=== PATIENT | male | born 1950 | race Caucasian/White ===

== ENCOUNTER 2020-06-23 07:29 | Emergency (ER) | payer OTHER ==
[~2020-06-23 07:29] MED LIST: Magnesium 2 GM/50 ML BAG (IN WATER) ONE; Ondansetron PF 4 MG/2 ML Vial ONE
[2020-06-23 07:44] LABS: #Eosinphils 0.1 10x3/uL (0.0-0.5); #Monocytes 1.1 10x3/uL (0.0-1.1); %Basophils 0.1 % (0.0-2.0); %Eosinophils 0.5 % (0.0-6.0); %Lymphocytes 1.7 % (18.0-47.0); %Monocytes 8.3 % (0.0-10.0); %Neutrophils 88.8 % (40.0-75.0); ALT (SGPT) 12 U/L (8-55); AST (SGOT) 21 U/L (5-34); Albumin 4.7 g/dL (3.4-4.8); Alkaline Phosphatase 180 U/L (40-110); Anion Gap 21 mmol/L (10-20); BUN (Urea Nitrogen) 26 mg/dL (8.4-25.7); Bilirubin, Total 1.6 mg/dL (0.2-1.2); Calc. Creatinine Clearance 0 mL/min (70-130); Calcium 10.3 mg/dL (7.8-10.44); Carbon Dioxide 19 mmol/L (23-31); Chloride 106 mmol/L (98-107); Globulin 4.2 g/dL (2.4-3.5); Glucose 124 mg/dL (83-110); Hemoglobin 15.6 g/dL (13.5-17.5); Mean Corpuscular HGB CONC 31.8 g/dL (32.0-36.0); Mean Corpuscular Hemoglobin 27.7 pg (27.0-33.0); Mean Corpuscular Volume 87.1 fl (81.2-95.1); Mean Platelet Volume 10.6 fl (7.4-10.4); Platelet Count 199 10x3/uL (150-450); Potassium 4.4 mmol/L (3.5-5.1); Protein, Total 8.9 g/dL (5.8-8.1); Red Blood Cell (RBC) Count 5.64 10x6/uL (4.32-5.72); SARS-CoV-2 NAA Rapid Test Not Detected (NotDetected); Sodium 142 mmol/L (136-145); White Blood Cell (WBC) Count 13.5 10x3/uL (3.5-10.5)
[2020-06-23 07:45] LABS: INR-International Normal Ratio 1.1; Prothrombin Time 11.7 sec (9.5-12.1)
[2020-06-23 07:46] LABS: Lactic Acid 3.4 mmol/L (0.5-2.2)
[2020-06-23] MEDS ORDERED: Piperacillin/Tazobactam 4.5 GM VIAL ONE (08:07)
[2020-06-23 09:27] LABS: Bilirubin Neg (Negative); Blood, Urine 150 (Negative); Clarity Cloudy (Clear); Glucose, Urine (Dipstick) Normal (Negative); Ketone, Urine Negative (Negative); Leukocyte 500 (Negative); Nitrite Negative (Negative); Protein, Urine (Dipstick) 30 mg/dl (Neg-Trace)
[2020-06-23 09:52] LABS: Bacteria/HPF 4+ HPF (None Seen); RBC/HPF 0-3 HPF (0-3); Squamous Epithelial 0-3 HPF (0-3); WBC/HPF 21-50 HPF (0-3)
== END 2020-06-23 13:52 ==
LOC: CSHERS 07:29
DX: I95.9 Hypotension, unspecified (principal); R19.7 Diarrhea, unspecified; R74.01 Elevation of levels of liver transaminase levels; I13.0 Hypertensive heart and chronic kidney disease with heart failure and stage 1 through stage 4 chronic kidney disease, or unspecified chronic kidney disease; I50.9 Heart failure, unspecified; N18.9 Chronic kidney disease, unspecified; E78.5 Hyperlipidemia, unspecified; K21.9 Gastro-esophageal reflux disease without esophagitis; I48.91 Unspecified atrial fibrillation; M19.90 Unspecified osteoarthritis, unspecified site; G47.30 Sleep apnea, unspecified; Z79.82 Long term (current) use of aspirin; Z79.899 Other long term (current) drug therapy; Z79.01 Long term (current) use of anticoagulants; Z20.822 Contact with and (suspected) exposure to COVID-19
CPT/HCPCS: 74177; 80053; 81003; 81015; 83605; 85025; 85610; 87040; 93005; 96365; 96367; 96375; J2405; J2543; J3475; U0002

== ENCOUNTER 2021-03-15 20:39 | Inpatient (IN) | payer OTHER ==
[2021-03-15 21:08] LABS: #Eosinphils 0.1 10x3/uL (0.0-0.5); #Monocytes 0.8 10x3/uL (0.0-1.1); #Neutrophils 6.3 10x3/uL (1.5-8.4); %Basophils 0.5 % (0.0-2.0); %Lymphocytes 8.3 % (18.0-47.0); %Monocytes 10.4 % (0.0-10.0); %Neutrophils 78.9 % (40.0-75.0); Hemoglobin 11.7 g/dL (13.5-17.5); Mean Corpuscular HGB CONC 30.9 g/dL (32.0-36.0); Mean Corpuscular Hemoglobin 27.4 pg (27.0-33.0); Mean Corpuscular Volume 88.8 fl (81.2-95.1); Mean Platelet Volume 11.3 fl (7.4-10.4); Platelet Count 238 10x3/uL (150-450); RBC Distribution Width 18.8 % (11.5-14.5); Red Blood Cell (RBC) Count 4.27 10x6/uL (4.32-5.72); White Blood Cell (WBC) Count 7.9 10x3/uL (3.5-10.5)
[2021-03-15 21:16] LABS: ALT (SGPT) 11 U/L (8-55); AST (SGOT) 18 U/L (5-34); Alkaline Phosphatase 171 U/L (40-110); Anion Gap 15 mmol/L (10-20); BUN (Urea Nitrogen) 15 mg/dL (8.4-25.7); Bilirubin, Total 1.3 mg/dL (0.2-1.2); Calc. Creatinine Clearance 0 mL/min (70-130); Calcium 8.9 mg/dL (7.8-10.44); Carbon Dioxide 21 mmol/L (23-31); Chloride 110 mmol/L (98-107); Globulin 2.9 g/dL (2.4-3.5); Glucose 100 mg/dL (83-110); Lipase 27 U/L (8-78); Potassium 4.6 mmol/L (3.5-5.1); Protein, Total 6.9 g/dL (5.8-8.1); Sodium 141 mmol/L (136-145)
[2021-03-15 21:35] LABS: CKMB 2.2 ng/mL (0-6.6)
[2021-03-16 00:18] LABS: SARS-CoV-2 NAA Rapid Test DETECTED (NotDetected)
[2021-03-16] MEDS ORDERED: Acetaminophen 325 MG TAB PO PRN (02:04)
[2021-03-16] MEDS ORDERED: HYDROcodone/Acetaminophen 5/325 mg Tablet PO PRN ×2 (02:04)
[2021-03-16] MEDS ORDERED: Nitroglycerin 0.4 MG TAB (25 Tab Bottle) SL PRN (02:04)
[2021-03-16] MEDS ORDERED: Senokot S 8.6-50 MG TAB PO PRN (02:04)
[2021-03-16] MEDS ORDERED: Guaifenesin DM 100-10/5 ML UDCUP PO PRN (02:04)
[2021-03-16] MEDS ORDERED: Calcium Carbonate 500 MG ChewTAB PO PRN (02:04)
[2021-03-16] MEDS ORDERED: Ondansetron PF 4 MG/2 ML Vial IVP PRN (02:04)
[2021-03-16] MEDS ORDERED: Enoxaparin Sodium 80 MG/0.8 ML SYRINGE SC SCH (02:15)
[2021-03-16] MEDS ORDERED: hydrALAZINE 20 MG/ML VIAL SLOW IVP PRN (02:34)
[2021-03-16 03:01] LABS: CKMB 2.6 ng/mL (0-6.6)
[2021-03-16 04:37] VITALS: BMI 39.4
[2021-03-16] MEDS ORDERED: Enoxaparin Sodium 100 MG/ML SYRINGE SC SCH (04:45)
[2021-03-16] MEDS ORDERED: Enoxaparin Sodium 30 MG/0.3 ML SYRINGE SC SCH (04:45)
[2021-03-16 07:12] LABS: #Basophils 0.1 10x3/uL (0.0-0.2); #Eosinphils 0.1 10x3/uL (0.0-0.5); #Monocytes 1.1 10x3/uL (0.0-1.1); #Neutrophils 5.6 10x3/uL (1.5-8.4); %Basophils 0.7 % (0.0-2.0); %Eosinophils 1.3 % (0.0-6.0); %Lymphocytes 7.4 % (18.0-47.0); %Monocytes 14.7 % (0.0-10.0); %Neutrophils 75.4 % (40.0-75.0); Hemoglobin 11.5 g/dL (13.5-17.5); Mean Corpuscular HGB CONC 30.6 g/dL (32.0-36.0); Mean Corpuscular Hemoglobin 27.2 pg (27.0-33.0); Mean Corpuscular Volume 88.9 fl (81.2-95.1); Mean Platelet Volume 11.3 fl (7.4-10.4); Platelet Count 244 10x3/uL (150-450); RBC Distribution Width 18.7 % (11.5-14.5); Red Blood Cell (RBC) Count 4.23 10x6/uL (4.32-5.72); White Blood Cell (WBC) Count 7.5 10x3/uL (3.5-10.5)
[2021-03-16 07:23] LABS: PTT 31.6 sec (22.0-33.0); Prothrombin Time 10.9 sec (9.5-12.1)
[2021-03-16 07:31] LABS: Anion Gap 15 mmol/L (10-20); BUN (Urea Nitrogen) 19 mg/dL (8.4-25.7); Calc. Creatinine Clearance 152 mL/min (70-130); Calcium 9.1 mg/dL (7.8-10.44); Carbon Dioxide 19 mmol/L (23-31); Cardiac Risk 3.6 (Less than 4.5); Chloride 113 mmol/L (98-107); Cholesterol 112 mg/dl (< 200 Desired); Glucose 110 mg/dL (83-110); HDL Cholesterol 31 mg/dL (>60 Neg Risk); LDL Cholesterol, Calculated 62 mg/dL; Potassium 3.8 mmol/L (3.5-5.1); Sodium 143 mmol/L (136-145); Triglycerides 97 mg/dL (Less than 150)
[2021-03-16] MEDS: Carvedilol 3.125 MG TAB PO SCH ×2 (08:09→17:57)
[2021-03-16] MEDS: Lisinopril 10 MG TAB PO SCH (08:09)
[2021-03-16] MEDS: Furosemide 20 MG TAB PO SCH (08:09)
[2021-03-16] MEDS: Aspirin 81 mg Enteric Coated Tablet PO SCH (08:09)
[2021-03-16 08:23] LABS: CKMB 3.8 ng/mL (0-6.6)
[2021-03-16] MEDS: Warfarin Sodium 5 MG TAB PO SCH (17:57)
[2021-03-16] MEDS: Enoxaparin Sodium 100 MG/ML SYRINGE SC SCH (20:15)
[2021-03-16] MEDS: Atorvastatin Calcium 10 MG TAB PO SCH (20:15)
[2021-03-16] MEDS: Enoxaparin Sodium 30 MG/0.3 ML SYRINGE SC SCH (20:16)
[2021-03-17] MEDS: Carvedilol 3.125 MG TAB PO SCH ×2 (09:59→18:23)
[2021-03-17] MEDS: Aspirin 81 mg Enteric Coated Tablet PO SCH (09:59)
[2021-03-17] MEDS: Enoxaparin Sodium 100 MG/ML SYRINGE SC SCH ×2 (09:59→21:28)
[2021-03-17] MEDS: Furosemide 20 MG TAB PO SCH (10:00)
[2021-03-17] MEDS: Lisinopril 10 MG TAB PO SCH (10:00)
[2021-03-17] MEDS: Enoxaparin Sodium 30 MG/0.3 ML SYRINGE SC SCH ×2 (10:00→21:28)
[2021-03-17 11:33] LABS: #Eosinphils 0.2 10x3/uL (0.0-0.5); #Monocytes 1.3 10x3/uL (0.0-1.1); #Neutrophils 6.9 10x3/uL (1.5-8.4); %Basophils 0.3 % (0.0-2.0); %Eosinophils 2.5 % (0.0-6.0); %Lymphocytes 6.9 % (18.0-47.0); %Monocytes 14.5 % (0.0-10.0); %Neutrophils 75.4 % (40.0-75.0); Hemoglobin 12.8 g/dL (13.5-17.5); Mean Corpuscular HGB CONC 30.9 g/dL (32.0-36.0); Mean Corpuscular Hemoglobin 27.5 pg (27.0-33.0); Mean Corpuscular Volume 88.8 fl (81.2-95.1); Mean Platelet Volume 10.7 fl (7.4-10.4); Platelet Count 226 10x3/uL (150-450); Red Blood Cell (RBC) Count 4.66 10x6/uL (4.32-5.72); White Blood Cell (WBC) Count 9.1 10x3/uL (3.5-10.5)
[2021-03-17 11:47] LABS: Magnesium 2.1 mg/dL (1.6-2.6)
[2021-03-17] MEDS: Warfarin Sodium 5 MG TAB PO SCH (18:23)
[2021-03-17] MEDS: Atorvastatin Calcium 10 MG TAB PO SCH (21:27)
[2021-03-18 05:05] LABS: Anion Gap 14 mmol/L (10-20); BUN (Urea Nitrogen) 16 mg/dL (8.4-25.7); Calc. Creatinine Clearance 102 mL/min (70-130); Carbon Dioxide 22 mmol/L (23-31); Chloride 108 mmol/L (98-107); Potassium 4.4 mmol/L (3.5-5.1); Sodium 140 mmol/L (136-145)
[2021-03-18 05:06] LABS: Calcium 9.1 mg/dL (7.8-10.44); Glucose 89 mg/dL (83-110)
[2021-03-18 05:09] LABS: Prothrombin Time 10.8 sec (9.5-12.1)
[2021-03-18] MEDS: Carvedilol 3.125 MG TAB PO SCH ×2 (08:40→18:28)
[2021-03-18] MEDS: Aspirin 81 mg Enteric Coated Tablet PO SCH (08:40)
[2021-03-18] MEDS: Enoxaparin Sodium 100 MG/ML SYRINGE SC SCH ×2 (08:40→21:23)
[2021-03-18] MEDS: Furosemide 20 MG TAB PO SCH (08:40)
[2021-03-18] MEDS: Enoxaparin Sodium 30 MG/0.3 ML SYRINGE SC SCH ×2 (08:40→21:23)
[2021-03-18] MEDS: Lisinopril 10 MG TAB PO SCH (08:40)
[2021-03-18 08:52] LABS: Mean Corpuscular HGB CONC 30.8 g/dL (32.0-36.0); Mean Corpuscular Hemoglobin 27.1 pg (27.0-33.0); Mean Corpuscular Volume 87.8 fl (81.2-95.1); Mean Platelet Volume 11.5 fl (7.4-10.4); Platelet Count 231 10x3/uL (150-450); RBC Distribution Width 19.1 % (11.5-14.5); Red Blood Cell (RBC) Count 4.43 10x6/uL (4.32-5.72)
[2021-03-18 08:56] LABS: Magnesium 2.1 mg/dL (1.6-2.6)
[2021-03-18 09:11] LABS: MDiff Complete? YES
[2021-03-18 09:25] LABS: Eosinophils 6 % (0-10); Lymphocytes 8 % (21-51); Monocytes 10 % (0-10); Neutrophil 76 % (42-75)
[2021-03-18 09:26] LABS: Platelet Morphology Comment Appears Adequate
[2021-03-18 09:27] LABS: Ovalocytes SLIGHT = 2-5 cells (100X) (0-1/hpf)
[2021-03-18] MEDS ORDERED: Warfarin Sodium 2.5 MG TAB PO SCH (17:00)
[2021-03-18] MEDS: Warfarin Sodium 5 MG TAB PO SCH (18:28)
[2021-03-18] MEDS: Atorvastatin Calcium 10 MG TAB PO SCH (21:22)
[2021-03-19 05:29] LABS: Anion Gap 13 mmol/L (10-20); BUN (Urea Nitrogen) 20 mg/dL (8.4-25.7); Calc. Creatinine Clearance 117 mL/min (70-130); Calcium 9.1 mg/dL (7.8-10.44); Carbon Dioxide 24 mmol/L (23-31); Chloride 108 mmol/L (98-107); Glucose 97 mg/dL (83-110); Potassium 4.2 mmol/L (3.5-5.1); Sodium 141 mmol/L (136-145)
[2021-03-19] MEDS: Carvedilol 3.125 MG TAB PO SCH ×2 (08:26→16:45)
[2021-03-19] MEDS: Enoxaparin Sodium 100 MG/ML SYRINGE SC SCH ×2 (08:26→20:33)
[2021-03-19] MEDS: Enoxaparin Sodium 30 MG/0.3 ML SYRINGE SC SCH ×2 (08:26→20:32)
[2021-03-19] MEDS: Lisinopril 10 MG TAB PO SCH (08:26)
[2021-03-19] MEDS: Aspirin 81 mg Enteric Coated Tablet PO SCH (08:26)
[2021-03-19] MEDS: Furosemide 20 MG TAB PO SCH (08:26)
[2021-03-19 08:38] LABS: Prothrombin Time 10.9 sec (9.5-12.1)
[2021-03-19] MEDS: Warfarin Sodium 5 MG TAB PO SCH (16:45)
[2021-03-19] MEDS: Atorvastatin Calcium 10 MG TAB PO SCH (20:31)
[2021-03-20 04:51] LABS: Troponin I 0.011 ng/mL (< 0.028)
[2021-03-20] MEDS: Carvedilol 3.125 MG TAB PO SCH ×2 (07:35→17:47)
[2021-03-20] MEDS: Aspirin 81 mg Enteric Coated Tablet PO SCH (07:35)
[2021-03-20] MEDS: Enoxaparin Sodium 100 MG/ML SYRINGE SC SCH ×2 (07:35→20:34)
[2021-03-20] MEDS: Lisinopril 10 MG TAB PO SCH (07:35)
[2021-03-20] MEDS: Furosemide 20 MG TAB PO SCH (07:35)
[2021-03-20] MEDS: Enoxaparin Sodium 30 MG/0.3 ML SYRINGE SC SCH ×2 (07:36→20:34)
[2021-03-20] MEDS ORDERED: Loratadine 10 MG TAB PO PRN (11:32)
[2021-03-20] MEDS ORDERED: Cepastat Lozenges 1 LOZ PO PRN (11:32)
[2021-03-20] MEDS ORDERED: Loperamide HCl 2 MG CAP PO PRN (11:32)
[2021-03-20] MEDS ORDERED: GUAIFENESIN SF SOLN 200 MG/10 ML UDCUP PO PRN (11:32)
[2021-03-20] MEDS ORDERED: Zolpidem Tartrate 5 MG TAB PO PRN (11:32)
[2021-03-20 12:12] LABS: INR-International Normal Ratio 1.1; Prothrombin Time 14.6 sec (12.0-14.7)
[2021-03-20] MEDS: Warfarin Sodium 5 MG TAB PO SCH (17:47)
[2021-03-20] MEDS: Atorvastatin Calcium 10 MG TAB PO SCH (20:34)
[2021-03-21 05:24] LABS: INR-International Normal Ratio 3.6; Prothrombin Time 37.4 sec (9.5-12.1)
[2021-03-21 05:41] LABS: Anion Gap 14 mmol/L (10-20); BUN (Urea Nitrogen) 21 mg/dL (8.4-25.7); Calc. Creatinine Clearance 145 mL/min (70-130); Calcium 8.8 mg/dL (7.8-10.44); Carbon Dioxide 20 mmol/L (23-31); Chloride 110 mmol/L (98-107); Glucose 83 mg/dL (83-110); Potassium 4.2 mmol/L (3.5-5.1); Sodium 140 mmol/L (136-145)
[2021-03-21 05:45] LABS: #Basophils 0.1 10x3/uL (0.0-0.2); #Eosinphils 0.4 10x3/uL (0.0-0.5); #Monocytes 1.3 10x3/uL (0.0-1.1); #Neutrophils 6.5 10x3/uL (1.5-8.4); %Basophils 0.6 % (0.0-2.0); %Eosinophils 4.5 % (0.0-6.0); %Lymphocytes 7.9 % (18.0-47.0); %Monocytes 14.3 % (0.0-10.0); %Neutrophils 72.1 % (40.0-75.0); Hemoglobin 13.3 g/dL (13.5-17.5); Mean Corpuscular Hemoglobin 27.4 pg (27.0-33.0); Mean Corpuscular Volume 91.5 fl (81.2-95.1); Mean Platelet Volume 12.2 fl (7.4-10.4); Platelet Count 225 10x3/uL (150-450); Red Blood Cell (RBC) Count 4.85 10x6/uL (4.32-5.72)
[2021-03-21 08:36] LABS: INR-International Normal Ratio 1.2; Prothrombin Time 12.9 sec (9.5-12.1)
[2021-03-21] MEDS: Enoxaparin Sodium 100 MG/ML SYRINGE SC SCH ×3 (11:37→20:54)
[2021-03-21] MEDS: Aspirin 81 mg Enteric Coated Tablet PO SCH (11:38)
[2021-03-21] MEDS: Lisinopril 10 MG TAB PO SCH (11:38)
[2021-03-21] MEDS: Carvedilol 3.125 MG TAB PO SCH ×2 (11:38→17:15)
[2021-03-21] MEDS: Furosemide 20 MG TAB PO SCH (11:38)
[2021-03-21] MEDS: Enoxaparin Sodium 30 MG/0.3 ML SYRINGE SC SCH ×2 (11:40→20:49)
[2021-03-21] MEDS: Warfarin Sodium 5 MG TAB PO SCH (17:15)
[2021-03-21] MEDS: Atorvastatin Calcium 10 MG TAB PO SCH (20:49)
[2021-03-22 06:21] LABS: INR-International Normal Ratio 1.1; Prothrombin Time 11.8 sec (9.5-12.1)
[2021-03-22] MEDS: Enoxaparin Sodium 100 MG/ML SYRINGE SC SCH ×2 (09:42→20:22)
[2021-03-22] MEDS: Lisinopril 10 MG TAB PO SCH (09:42)
[2021-03-22] MEDS: Furosemide 20 MG TAB PO SCH (09:42)
[2021-03-22] MEDS: Aspirin 81 mg Enteric Coated Tablet PO SCH (09:42)
[2021-03-22] MEDS: Carvedilol 3.125 MG TAB PO SCH ×2 (09:42→17:52)
[2021-03-22] MEDS: Enoxaparin Sodium 30 MG/0.3 ML SYRINGE SC SCH ×2 (09:43→20:21)
[2021-03-22 17:04] VITALS: BP 129/68; TEMP 98.1
[2021-03-22] MEDS: Warfarin Sodium 5 MG TAB PO SCH (17:50)
[2021-03-22] MEDS: Atorvastatin Calcium 10 MG TAB PO SCH (20:20)
== END 2021-03-22 21:45 | DRG 73 ==
LOC: CSHERS 20:39 → CSHTELE 03-16 04:34 → EEVIPCON 03-16 04:34 → OBSVTOIN 03-16 17:10
PROVIDERS: ADMIT Family Medicine; ATTEND Internal Medicine
PROC: 8E0ZXY6 Isolation (ICD-10-PCS; principal; 2021-03-16)
DX: G90.8 Other disorders of autonomic nervous system (principal); U07.1 COVID-19; J12.82 Pneumonia due to coronavirus disease 2019; I50.22 Chronic systolic (congestive) heart failure; N17.9 Acute kidney failure, unspecified; I48.11 Longstanding persistent atrial fibrillation; G82.20 Paraplegia, unspecified; R07.9 Chest pain, unspecified; I16.0 Hypertensive urgency; G47.33 Obstructive sleep apnea (adult) (pediatric); K21.9 Gastro-esophageal reflux disease without esophagitis; R79.1 Abnormal coagulation profile; E78.2 Mixed hyperlipidemia; I35.0 Nonrheumatic aortic (valve) stenosis; I11.0 Hypertensive heart disease with heart failure; I25.10 Atherosclerotic heart disease of native coronary artery without angina pectoris; N31.9 Neuromuscular dysfunction of bladder, unspecified; I48.0 Paroxysmal atrial fibrillation; Z95.5 Presence of coronary angioplasty implant and graft; Z95.810 Presence of automatic (implantable) cardiac defibrillator; Z95.2 Presence of prosthetic heart valve; Z79.82 Long term (current) use of aspirin; Z79.01 Long term (current) use of anticoagulants; Z97.8 Presence of other specified devices; S31.109D Unspecified open wound of abdominal wall, unspecified quadrant without penetration into peritoneal cavity, subsequent encounter; W34.00XD Accidental discharge from unspecified firearms or gun, subsequent encounter
CPT/HCPCS: 36415; 71045; 80048; 80053; 80061; 82553; 83605; 83690; 83735; 84443; 84484; 85025; 85610; 85730; 93005; 93306; 93880; 93970; 94760; 96372; G0378; J1650; U0002

== ENCOUNTER 2021-07-06 19:11 | Emergency (ER) | payer OTHER ==
[~2021-07-06 19:11] MED LIST changes: +Iopamidol 300 61% 100 ML VIAL FS ONE; -Magnesium 2 GM/50 ML BAG (IN WATER) ONE; -Ondansetron PF 4 MG/2 ML Vial ONE
[2021-07-06 20:25] LABS: Mean Corpuscular HGB CONC 31.5 g/dL (32.0-36.0); Mean Corpuscular Volume 82.6 fl (81.2-95.1); Mean Platelet Volume 11.4 fl (7.4-10.4); Platelet Count 279 10x3/uL (150-450); RBC Distribution Width 19.8 % (11.5-14.5); Red Blood Cell (RBC) Count 4.61 10x6/uL (4.32-5.72)
[2021-07-06 20:59] LABS: ALT (SGPT) 11 U/L (8-55); AST (SGOT) 17 U/L (5-34); Albumin 3.9 g/dL (3.4-4.8); Alkaline Phosphatase 173 U/L (40-110); Anion Gap 13 mmol/L (10-20); BUN (Urea Nitrogen) 14 mg/dL (8.4-25.7); Bilirubin, Total 1.2 mg/dL (0.2-1.2); Calc. Creatinine Clearance 0 mL/min (70-130); Calcium 9.1 mg/dL (7.8-10.44); Carbon Dioxide 22 mmol/L (23-31); Chloride 108 mmol/L (98-107); Globulin 3.4 g/dL (2.4-3.5); Glucose 86 mg/dL (83-110); Potassium 4.9 mmol/L (3.5-5.1); Protein, Total 7.3 g/dL (5.8-8.1); Sodium 138 mmol/L (136-145)
[2021-07-06 21:36] LABS: MDiff Complete? YES
[2021-07-06 21:41] LABS: Lymphocytes 5 % (21-51); Monocytes 15 % (0-10); Neutrophil 80 % (42-75)
[2021-07-06 21:42] LABS: Anisocytosis SLIGHT = 6-15 cells (100X) (0-5/hpf); Elliptocytes SLIGHT = 2-5 cells (100X) (0-1/hpf); Platelet Morphology Comment Appears Adequate
[2021-07-06 23:07] LABS: SARS-CoV-2 NAA Rapid Test Not Detected (NotDetected)
[2021-07-07 03:05] LABS: Prothrombin Time 42.5 sec (9.5-12.1)
[2021-07-07] MEDS ORDERED: Lisinopril 10 MG TAB ONE (03:05)
[2021-07-07 03:19] LABS: INR-International Normal Ratio 4.2
[2021-07-07] MEDS ORDERED: Carvedilol 3.125 MG TAB ONE (03:47)
== END 2021-07-07 06:32 | disposition short-term general hospital (02) ==
LOC: EEVIPCON 19:11 → CSHERS 19:11
DX: R07.9 Chest pain, unspecified (principal); L02.211 Cutaneous abscess of abdominal wall; L03.311 Cellulitis of abdominal wall; Z20.822 Contact with and (suspected) exposure to COVID-19; I13.0 Hypertensive heart and chronic kidney disease with heart failure and stage 1 through stage 4 chronic kidney disease, or unspecified chronic kidney disease; N18.9 Chronic kidney disease, unspecified; I50.9 Heart failure, unspecified; I48.91 Unspecified atrial fibrillation; K21.9 Gastro-esophageal reflux disease without esophagitis; M19.90 Unspecified osteoarthritis, unspecified site; G47.30 Sleep apnea, unspecified
CPT/HCPCS: 70450; 71045; 74177; 80053; 84484; 85025; 85610; 93005; Q9967; U0002

== ENCOUNTER 2022-06-03 22:19 | Emergency (ER) | payer OTHER ==
[2022-06-03 23:23] LABS: Hemoglobin 12.9 g/dL (13.5-17.5); Mean Corpuscular HGB CONC 31.2 g/dL (32.0-36.0); Mean Corpuscular Hemoglobin 26.9 pg (27.0-33.0); Mean Corpuscular Volume 86.3 fl (81.2-95.1); Mean Platelet Volume 11.6 fl (7.4-10.4); Platelet Count 299 10x3/uL (150-450); RBC Distribution Width 17.7 % (11.5-14.5); White Blood Cell (WBC) Count 20.9 10x3/uL (3.5-10.5)
[2022-06-03 23:29] LABS: ALT (SGPT) 16 U/L (8-55); AST (SGOT) 21 U/L (5-34); Albumin 4.1 g/dL (3.4-4.8); Alkaline Phosphatase 166 U/L (40-110); Anion Gap 15 mmol/L (10-20); BUN (Urea Nitrogen) 21 mg/dL (8.4-25.7); Bilirubin, Total 1.5 mg/dL (0.2-1.2); Calc. Creatinine Clearance 0 mL/min (70-130); Calcium 9.5 mg/dL (7.8-10.44); Carbon Dioxide 21 mmol/L (23-31); Chloride 108 mmol/L (98-107); Estimated GFR 63; Globulin 3.7 g/dL (2.4-3.5); Glucose 115 mg/dL (83-110); Lipase 28 U/L (8-78); Potassium 4.7 mmol/L (3.5-5.1); Protein, Total 7.8 g/dL (5.8-8.1); Sodium 139 mmol/L (136-145)
[2022-06-03 23:49] LABS: PTT 31.1 sec (22.0-33.0); Prothrombin Time 10.5 sec (9.5-12.1)
[2022-06-03 23:59] LABS: MDiff Complete? YES
[2022-06-04 00:03] LABS: Band 3 % (5-11); Lymphocytes 2 % (21-51); Monocytes 15 % (0-10); Neutrophil 80 % (42-75)
[2022-06-04 00:04] LABS: Ovalocytes SLIGHT = 2-5 cells (100X) (0-1/hpf); Platelet Morphology Comment Appears Adequate
[2022-06-04] MEDS ORDERED: Loperamide HCl 2 MG CAP ONE (00:29)
== END 2022-06-04 02:01 | disposition home or self-care (01) ==
LOC: CSHERS 22:19
DX: R19.7 Diarrhea, unspecified (principal); R11.2 Nausea with vomiting, unspecified; D72.829 Elevated white blood cell count, unspecified; I11.0 Hypertensive heart disease with heart failure; I50.9 Heart failure, unspecified; E66.9 Obesity, unspecified; K21.9 Gastro-esophageal reflux disease without esophagitis; Z79.01 Long term (current) use of anticoagulants; Z79.899 Other long term (current) drug therapy
CPT/HCPCS: 36415; 74177; 80053; 83690; 84484; 85025; 85610; 85730; 93005; Q9967

== ENCOUNTER 2022-06-06 14:40 | Inpatient (IN) | payer OTHER ==
[2022-06-06 15:17] LABS: Bilirubin 1+ (Negative); Blood, Urine 250 (Negative); Glucose, Urine (Dipstick) Normal (Negative); Ketone, Urine 15 mg/dL (Negative); Leukocyte 500 (Negative); Nitrite Positive (Negative); Protein, Urine (Dipstick) 500 mg/dl (Neg-Trace)
[2022-06-06 15:25] LABS: Clarity Turbid (Clear)
[2022-06-06 15:26] LABS: Bacteria/HPF 4+ HPF (None Seen); Renal Epithelial 0-3 HPF (None Seen); Squamous Epithelial 0-3 HPF (0-3); WBC/HPF Greater than 50 HPF (0-3)
[2022-06-06 15:29] LABS: INR-International Normal Ratio 1.1; PTT 35.2 sec (22.0-33.0); Prothrombin Time 12.2 sec (9.5-12.1)
[2022-06-06] MEDS ORDERED: VANCOMYCIN 2 GRAM/400 ML BAG 2 GM in Premix Bag 1 BAG IVPB SCH (15:30)
[2022-06-06 15:34] LABS: Hemoglobin 12.5 g/dL (13.5-17.5); Mean Corpuscular HGB CONC 31.9 g/dL (32.0-36.0); Mean Corpuscular Hemoglobin 26.8 pg (27.0-33.0); Mean Corpuscular Volume 83.9 fl (81.2-95.1); Mean Platelet Volume 11.5 fl (7.4-10.4); Platelet Count 216 10x3/uL (150-450); RBC Distribution Width 18.2 % (11.5-14.5); Red Blood Cell (RBC) Count 4.67 10x6/uL (4.32-5.72); White Blood Cell (WBC) Count 22.9 10x3/uL (3.5-10.5)
[2022-06-06 15:35] LABS: MDiff Complete? YES; Manual Diff?? YES
[2022-06-06 15:37] LABS: Band 5 % (5-11); Lymphocytes 2 % (21-51); Metamyelocyte 1 % (0-0); Monocytes 4 % (0-10); Neutrophil 88 % (42-75)
[2022-06-06 15:40] LABS: Large Platelets SLIGHT; Platelet Morphology Comment Appears Adequate; RBC Morphology Normal
[2022-06-06 15:45] LABS: SARS-CoV-2 NAA Rapid Test Not Detected (NotDetected)
[2022-06-06 16:03] LABS: CKMB 3.9 ng/mL (0-6.6)
[2022-06-06 17:10] LABS: ALT (SGPT) 19 U/L (8-55); AST (SGOT) 53 U/L (5-34); Albumin 3.7 g/dL (3.4-4.8); Alkaline Phosphatase 133 U/L (40-110); Anion Gap 21 mmol/L (10-20); BUN (Urea Nitrogen) 23 mg/dL (8.4-25.7); Bilirubin, Total 2.5 mg/dL (0.2-1.2); Calc. Creatinine Clearance 0 mL/min (70-130); Calcium 8.9 mg/dL (7.8-10.44); Carbon Dioxide 14 mmol/L (23-31); Chloride 107 mmol/L (98-107); Estimated GFR 44; Globulin 3.7 g/dL (2.4-3.5); Glucose 99 mg/dL (83-110); Lipase 10 U/L (8-78); Magnesium 1.8 mg/dL (1.6-2.6); Potassium 3.5 mmol/L (3.5-5.1); Protein, Total 7.4 g/dL (5.8-8.1); Sodium 138 mmol/L (136-145)
[2022-06-06] MEDS ORDERED: Nitroglycerin 2% Ointment 1 INCH/1 GM Packet ONE (17:23)
[2022-06-06] MEDS ORDERED: Cefepime 2 GM VIAL ONE (17:23)
[2022-06-06] MEDS ORDERED: Aspirin 325 MG TAB ONE (17:23)
[2022-06-06] MEDS ORDERED: Furosemide 100 MG/10 ML VIAL ONE (17:23)
[2022-06-06 18:12] LABS: Lactic Acid 3.9 mmol/L (0.5-2.2)
[2022-06-06 18:57] LABS: Troponin I 0.479 ng/mL (< 0.028)
[2022-06-06] MEDS ORDERED: Metoprolol Tartrate 5 MG/5 ML VIAL ONE (19:18)
[2022-06-06] MEDS ORDERED: Ondansetron PF 4 MG/2 ML Vial IVP PRN (19:30)
[2022-06-06] MEDS ORDERED: Senokot S 8.6-50 MG TAB PO PRN (19:30)
[2022-06-06] MEDS ORDERED: Acetaminophen 325 MG TAB PO PRN (19:30)
[2022-06-06] MEDS ORDERED: Calcium Carbonate 500 MG ChewTAB PO PRN (19:30)
[2022-06-06] MEDS ORDERED: Enoxaparin 120 MG/0.8 ML SYRINGE SC SCH ×2 (19:45→21:30)
[2022-06-06] MEDS ORDERED: Furosemide 20 MG/2 ML VIAL SLOW IVP SCH (20:15)
[2022-06-06] MEDS ORDERED: Carvedilol 6.25 MG TAB PO SCH ×2 (21:00)
[2022-06-06] MEDS ORDERED: Atorvastatin Calcium 40 MG TAB PO SCH (21:00)
[2022-06-06 22:09] LABS: Anion Gap 22 mmol/L (10-20); BUN (Urea Nitrogen) 28 mg/dL (8.4-25.7); Calc. Creatinine Clearance 83 mL/min (70-130); Calcium 8.8 mg/dL (7.8-10.44); Carbon Dioxide 15 mmol/L (23-31); Chloride 105 mmol/L (98-107); Estimated GFR 33; Glucose 96 mg/dL (83-110); Potassium 3.8 mmol/L (3.5-5.1); Sodium 138 mmol/L (136-145)
[2022-06-06] MEDS: Famotidine/PF 20 mg/2ml Vial SLOW IVP SCH (22:21)
[2022-06-06 22:40] LABS: CKMB 10.2 ng/mL (0-6.6)
[2022-06-06 22:47] LABS: Actual Bicarbonate (HCO3a) 13.4 mEq/L (22-28); Base Excess (BEa) -10.2 mEq/L (-2.0 to +3.0); CO2 Tension 24.4 mmHg (35.0-45.0); Calcium, Ionized (arterial) 1.14 mmol/L (1.12-1.30); Carboxyhemoglobin (COHb) 0.5 gm% (0.0-3.0); O2 Tension (PaO2), arterial 149.1 mmHg (> 70.0); Potassium - ABG Lab 3.8 mmol/L (3.70-5.30); Puncture Site RRA; pH, Arterial 7.36 (7.35-7.45)
[2022-06-06] MEDS ORDERED: Metoprolol Tartrate 5 MG/5 ML VIAL IVP SCH (23:45)
[2022-06-06] MEDS ORDERED: Sodium Bicarb 50 MEQ/50 ML VIAL IVP SCH (23:59)
[2022-06-07] MEDS ORDERED: Acetaminophen 650 MG Suppository PR PRN (00:23)
[2022-06-07] MEDS ORDERED: Sodium Bicarb 50 MEQ/50 ML VIAL IVP SCH (01:00)
[2022-06-07] MEDS: Albumin 25% 25 GM/100 ML BOT IVPB SCH ×4 (01:27→18:33)
[2022-06-07] MEDS ORDERED: WATER IV SCH (02:45)
[2022-06-07] MEDS ORDERED: SODIUM BICARBONATE IV SCH (02:45)
[2022-06-07] MEDS ORDERED: DEXTROSE 5% IV SCH (02:45)
[2022-06-07 03:11] LABS: Actual Bicarbonate (HCO3a) 17.9 mEq/L (22-28); Base Excess (BEa) -3.9 mEq/L (-2.0 to +3.0); CO2 Tension 24.3 mmHg (35.0-45.0); Calcium, Ionized (arterial) 1.07 mmol/L (1.12-1.30); Carboxyhemoglobin (COHb) 0.2 gm% (0.0-3.0); Hemoglobin (Hb) 12.6 g/dL (14.0-18.0); O2 Tension (PaO2), arterial 132.6 mmHg (> 70.0); Potassium - ABG Lab 3.7 mmol/L (3.70-5.30); Puncture Site RRA; pH, Arterial 7.49 (7.35-7.45)
[2022-06-07 03:15] LABS: ALV-art Gradient 157.875 mmHg (0-20)
[2022-06-07] MEDS ORDERED: Ketorolac Tromethamine 30 MG/ML VIAL IVP SCH (03:15)
[2022-06-07] MEDS ORDERED: Furosemide 100 MG/10 ML VIAL SLOW IVP SCH (04:00)
[2022-06-07] MEDS ORDERED: Magnesium 2 GM/50 ML(in water) 2 GM in Premix Bag 1 BAG IVPB SCH (04:15)
[2022-06-07 04:36] LABS: Lactic Acid 2.2 mmol/L (0.5-2.2)
[2022-06-07 04:41] LABS: Mean Corpuscular HGB CONC 32.4 g/dL (32.0-36.0); Mean Corpuscular Hemoglobin 26.8 pg (27.0-33.0); Mean Corpuscular Volume 82.8 fl (81.2-95.1); Mean Platelet Volume 12.5 fl (7.4-10.4); Platelet Count 128 10x3/uL (150-450); Red Blood Cell (RBC) Count 4.47 10x6/uL (4.32-5.72)
[2022-06-07 04:42] LABS: ALT (SGPT) 115 U/L (8-55); AST (SGOT) 326 U/L (5-34); Albumin 3.5 g/dL (3.4-4.8); Alkaline Phosphatase 103 U/L (40-110); Anion Gap 21 mmol/L (10-20); BUN (Urea Nitrogen) 34 mg/dL (8.4-25.7); Bilirubin, Total 2.2 mg/dL (0.2-1.2); Calc. Creatinine Clearance 78 mL/min (70-130); Calcium 8.5 mg/dL (7.8-10.44); Carbon Dioxide 16 mmol/L (23-31); Chloride 106 mmol/L (98-107); Estimated GFR 30; Globulin 3.2 g/dL (2.4-3.5); Glucose 108 mg/dL (83-110); Magnesium 1.9 mg/dL (1.6-2.6); Potassium 3.5 mmol/L (3.5-5.1); Protein, Total 6.7 g/dL (5.8-8.1); Sodium 139 mmol/L (136-145)
[2022-06-07] MEDS ORDERED: Potassium Chloride 20 MEQ in Premix Bag 1 BAG IVPB SCH (05:00)
[2022-06-07] MEDS: Metoprolol Tartrate 5 MG/5 ML VIAL IVP SCH ×4 (05:21→20:51)
[2022-06-07 05:32] LABS: CKMB 7.4 ng/mL (0-6.6)
[2022-06-07 05:46] LABS: MDiff Complete? YES
[2022-06-07 05:48] LABS: Band 6 % (5-11); Lymphocytes 3 % (21-51); Monocytes 17 % (0-10); Neutrophil 74 % (42-75)
[2022-06-07 05:50] LABS: Anisocytosis SLIGHT = 6-15 cells (100X) (0-5/hpf); Elliptocytes SLIGHT = 2-5 cells (100X) (0-1/hpf); Platelet Morphology Comment Appears Decreased
[2022-06-07] MEDS ORDERED: Ampicillin 2 GM in Sodium Chloride 0.9% 100 ML IVPB SCH (06:00)
[2022-06-07] MEDS ORDERED: Furosemide 40 MG/4 ML VIAL SLOW IVP SCH (06:00)
[2022-06-07] MEDS ORDERED: Cefepime 1 GM in Sodium Chloride 0.9% 100 ML IVPB SCH (08:00)
[2022-06-07] MEDS: Furosemide 40 MG/4 ML VIAL SLOW IVP SCH (08:42)
[2022-06-07] MEDS: Aspirin 81 mg Enteric Coated Tablet PO SCH (08:44)
[2022-06-07] MEDS ORDERED: Enoxaparin 120 MG/0.8 ML SYRINGE SC SCH (09:00)
[2022-06-07] MEDS: Cefepime 2 GM in Sodium Chloride 0.9% 100 ML IVPB SCH ×2 (09:58→20:54)
[2022-06-07] MEDS: Famotidine/PF 20 mg/2ml Vial SLOW IVP SCH ×2 (09:59→20:53)
[2022-06-07] MEDS: Ampicillin 2 GM in Sodium Chloride 0.9% 100 ML IVPB SCH ×4 (10:53→23:50)
[2022-06-07] MEDS ORDERED: VANCOMYCIN 2 GRAM/400 ML BAG 2 GM in Premix Bag 1 BAG IVPB SCH (16:00)
[2022-06-07 23:34] LABS: Actual Bicarbonate (HCO3a) 16.5 mEq/L (22-28); Base Excess (BEa) -6.9 mEq/L (-2.0 to +3.0); Calcium, Ionized (arterial) 1.08 mmol/L (1.12-1.30); Carboxyhemoglobin (COHb) 0.2 gm% (0.0-3.0); Hemoglobin (Hb) 11.3 g/dL (14.0-18.0); O2 Tension (PaO2), arterial 143.3 mmHg (> 70.0); Potassium - ABG Lab 3.8 mmol/L (3.70-5.30); Puncture Site LRA
[2022-06-08] MEDS: Ampicillin 2 GM in Sodium Chloride 0.9% 100 ML IVPB SCH ×2 (02:55→05:44)
[2022-06-08] MEDS: Metoprolol Tartrate 5 MG/5 ML VIAL IVP SCH (05:43)
[2022-06-08 06:26] LABS: Anion Gap 26 mmol/L (10-20); BUN (Urea Nitrogen) 57 mg/dL (8.4-25.7); Calc. Creatinine Clearance 34 mL/min (70-130); Calcium 8.4 mg/dL (7.8-10.44); Carbon Dioxide 12 mmol/L (23-31); Chloride 109 mmol/L (98-107); Estimated GFR 17; Glucose 86 mg/dL (83-110); Sodium 143 mmol/L (136-145)
[2022-06-08 06:43] LABS: Mean Corpuscular HGB CONC 31.8 g/dL (32.0-36.0); Mean Corpuscular Hemoglobin 26.4 pg (27.0-33.0); Mean Corpuscular Volume 83.2 fl (81.2-95.1); Platelet Count 73 10x3/uL (150-450); RBC Distribution Width 18.5 % (11.5-14.5); Red Blood Cell (RBC) Count 4.16 10x6/uL (4.32-5.72); White Blood Cell (WBC) Count 15.5 10x3/uL (3.5-10.5)
[2022-06-08] MEDS: Aspirin 81 mg Enteric Coated Tablet PO SCH (08:34)
[2022-06-08] MEDS: Famotidine/PF 20 mg/2ml Vial SLOW IVP SCH (08:44)
[2022-06-08] MEDS: Furosemide 40 MG/4 ML VIAL SLOW IVP SCH (08:45)
[2022-06-08] MEDS ORDERED: Enoxaparin 120 MG/0.8 ML SYRINGE SC SCH (09:00)
[2022-06-08] MEDS: Cefepime 1 GM in Sodium Chloride 0.9% 100 ML IVPB SCH ×2 (09:45→20:28)
[2022-06-08] MEDS: Cefepime 2 GM in Sodium Chloride 0.9% 100 ML IVPB SCH (09:54)
[2022-06-08] MEDS ORDERED: VANCOMYCIN 2 GRAM/400 ML BAG 2 GM in Premix Bag 1 BAG IVPB SCH (16:00)
[2022-06-09 04:47] LABS: Vancomycin, Random 31.1 ug/mL (See Comment)
[2022-06-09] MEDS ORDERED: Vancomycin Dose by Levels Sliding Scale (Wt > 99) FS SCH (05:15)
[2022-06-09] MEDS: Aspirin 81 mg Enteric Coated Tablet PO SCH (08:09)
[2022-06-09] MEDS: Furosemide 40 MG/4 ML VIAL SLOW IVP SCH (08:16)
[2022-06-09] MEDS: Cefepime 1 GM in Sodium Chloride 0.9% 100 ML IVPB SCH ×2 (08:16→20:06)
[2022-06-09] MEDS: Famotidine/PF 20 mg/2ml Vial SLOW IVP SCH (08:17)
[2022-06-09 08:55] VITALS: BMI 41.7
[2022-06-09] MEDS: Metoprolol Tartrate 5 MG/5 ML VIAL IVP PRN ×2 (09:40→15:41)
[2022-06-09] MEDS ORDERED: hydrALAZINE 20 MG/ML VIAL SLOW IVP PRN (16:35)
[2022-06-09 20:22] VITALS: BP 160/91; TEMP 99.8
== END 2022-06-09 22:30 | disposition short-term general hospital (02) | DRG 698 ==
LOC: CSHERS 14:40 → EEVIPCON 20:35 → CSHICU 20:35
PROVIDERS: ADMIT Student in an Organized Health Care Education/Training Program; ATTEND Internal Medicine
PROC: 5A09457 Assistance with Respiratory Ventilation, 24-96 Consecutive Hours, Continuous Positive Airway Pressure (ICD-10-PCS; principal; 2022-06-06)
PROC: 4A033R1 Measurement of Arterial Saturation, Peripheral, Percutaneous Approach (ICD-10-PCS; 2022-06-06)
PROC: 30233J1 Transfusion of Nonautologous Serum Albumin into Peripheral Vein, Percutaneous Approach (ICD-10-PCS; 2022-06-07)
DX: T83.511A Infection and inflammatory reaction due to indwelling urethral catheter, initial encounter (principal); A41.02 Sepsis due to Methicillin resistant Staphylococcus aureus; I50.23 Acute on chronic systolic (congestive) heart failure; R65.20 Severe sepsis without septic shock; J96.01 Acute respiratory failure with hypoxia; G93.41 Metabolic encephalopathy; I21.A1 Myocardial infarction type 2; E87.20 Acidosis, unspecified; N17.9 Acute kidney failure, unspecified; I13.0 Hypertensive heart and chronic kidney disease with heart failure and stage 1 through stage 4 chronic kidney disease, or unspecified chronic kidney disease; G82.20 Paraplegia, unspecified; I48.11 Longstanding persistent atrial fibrillation; Z68.41 Body mass index [BMI] 40.0-44.9, adult; N39.0 Urinary tract infection, site not specified; E78.5 Hyperlipidemia, unspecified; I25.10 Atherosclerotic heart disease of native coronary artery without angina pectoris; E03.9 Hypothyroidism, unspecified; G47.33 Obstructive sleep apnea (adult) (pediatric); N18.2 Chronic kidney disease, stage 2 (mild); K21.9 Gastro-esophageal reflux disease without esophagitis; E66.01 Morbid (severe) obesity due to excess calories; Z85.46 Personal history of malignant neoplasm of prostate; Z87.891 Personal history of nicotine dependence; Z98.890 Other specified postprocedural states; Z91.040 Latex allergy status; Z91.018 Allergy to other foods; Z79.82 Long term (current) use of aspirin; Z79.01 Long term (current) use of anticoagulants; Z79.899 Other long term (current) drug therapy; Z95.2 Presence of prosthetic heart valve; Z95.810 Presence of automatic (implantable) cardiac defibrillator; Z95.5 Presence of coronary angioplasty implant and graft; Z20.822 Contact with and (suspected) exposure to COVID-19
CPT/HCPCS: 36415; 36416; 36600; 70450; 71045; 74177; 76705; 80048; 80053; 80202; 81003; 81015; 82140; 82553; 82805; 83605; 83690; 83735; 83880; 84443; 84484; 85025; 85027; 85610; 85730; 87040; 87077; 87086; 87149; 87186; 93005; 93306; 94660; 94760; J0290; J0360; J0692; J1650; J1885; J1940; J3370; J3475; J3480; J3490; J7070; P9047; S0028